=== PATIENT | male | born 2000 | race Two or more races ===

== ENCOUNTER 2024-03-21 21:16 | Emergency (ER) | payer OTHER ==
[2024-03-21 21:44] VITALS: BP 120/81; PULSE 82; RESP 16; TEMP 97.8; BMI 27.7
[2024-03-21] MEDS ORDERED: KETOROLAC TROMETHAMINE 30 MG/1 ML VIAL ONE (22:14)
[2024-03-21] MEDS: KETOROLAC TROMETHAMINE 30 MG/1 ML VIAL IM ONE (22:18)
== END 2024-03-22 01:09 | disposition home or self-care (01) ==
LOC: JERFT 21:16
PROC: 3E0233Z Introduction of Anti-inflammatory into Muscle, Percutaneous Approach (ICD-10-PCS; principal; 2024-03-21)
DX: S40.021A Contusion of right upper arm, initial encounter (principal); W18.39XA Other fall on same level, initial encounter; Y93.64 Activity, baseball
CPT/HCPCS: 73090-TC-RT-FY; 73110-TC-RT-FY; 99284-25

== ENCOUNTER 2025-03-11 23:16 | Emergency (ER) | payer OTHER ==
[2025-03-11 23:22] VITALS: TEMP 98.8
[2025-03-12 01:14] LABS: ABSOLUTE IMMATURE GRANULOCYTES 0.01 x10^3/uL (0.0-0.031); BASOPHILS # 0.03 x10^3/uL (0.01-0.08); EOSINOPHIL % 0.8 % (0.8-7.0); EOSINOPHILS # 0.05 x10^3/uL (0.04-0.54); HEMATOCRIT 44.4 % (40.1-51.0); HEMOGLOBIN 14.6 g/dL (13.7-17.5); MCHC 32.9 g/dl (32.3-36.5); MEAN CELL VOLUME 88.3 fl (79.0-92.2); MEAN PLT VOLUME 8.8 fl (9.4-12.4); MONOCYTE # 0.53 x10^3/uL (0.30-0.82); MONOCYTE % 8.6 % (5.3-12.2); PLATELET COUNT 199 x10^3/uL (163-337); RDW 12.8 % (11.9-15.3)
[2025-03-12] MEDS: SODIUM CHLORIDE 0.9% 500 ML INFUS.BAG IV ONE (01:37)
[2025-03-12 02:28] LABS: POTASSIUM 4.5 mmol/L (3.5-5.1)
[2025-03-12 02:30] LABS: CALCIUM 8.9 mg/dL (8.5-10.1)
[2025-03-12 02:31] LABS: ALBUMIN 3.7 g/dl (3.4-5.0); BLOOD UREA NITROGEN 14.5 mg/dL (7-18); MAGNESIUM 1.9 mg/dL (1.8-2.4)
[2025-03-12 02:34] LABS: CREATININE 1.1 mg/dL (0.55-1.3)
[2025-03-12 02:35] LABS: BILIRUBIN,TOTAL 0.5 mg/dL (0.2-1)
[2025-03-12 02:36] LABS: TOT PROT 7.3 g/dl (6.4-8.2)
[2025-03-12 02:45] VITALS: BP 129/80; PULSE 87; RESP 18
== END 2025-03-12 02:44 | disposition home or self-care (01) ==
LOC: JER 23:16
DX: R00.2 Palpitations (principal); R42 Dizziness and giddiness
CPT/HCPCS: 36415; 80053; 83735; 84439; 84443; 84484; 85025; 93005; 93010; 99284-25